=== PATIENT | female | born 1950 | race Caucasian/White ===

== ENCOUNTER 2024-09-05 07:50 | Day surgery (SDC) | payer MEDICARE ==
[2024-09-05] VITALS (10 sets, daily range): BP systolic 117–150; BP diastolic 62–79; PULSE 61–76; RESP 12–15; TEMP 98.2; O2SAT 92–97
[~2024-09-05] VITALS: Ht 172.7 cm; Wt 82.0 kg
[~2024-09-05 07:50] MED LIST: DULO-31 PO; ESTR0.5T36 PO; LEVO100T PO; LOVA20TA2 PO
[2024-09-05] MEDS ORDERED: ATOR-411 PO (08:26)
[2024-09-05] MEDS ORDERED: SEMA1PEN3 SUBCUT (08:31)
[2024-09-05 08:39] LABS: BASOPHILS % (AUTO) 0.4 % (0-1); EOSINOPHILS # (AUTO) 0.1 X10'3 (0-0.9); EOSINOPHILS % (AUTO) 1.9 % (0-6); HEMATOCRIT 41.5 % (35.0-45.0); HEMOGLOBIN 13.8 g/dl (12.0-16.0); LYMPHOCYTES # (AUTO) 1.7 X10'3 (1.1-4.8); LYMPHOCYTES % (AUTO) 29.2 % (21-51); MEAN CORPUSCULAR HEMOGLOBIN 30.6 PG (27.0-31.0); MEAN CORPUSCULAR HGB CONC 33.3 g/dL (33.0-36.5); MEAN CORPUSCULAR VOLUME 92.1 FL (78-98); MEAN PLATELET VOLUME 9.3 FL (7.4-10.4); MONOCYTES # (AUTO) 0.5 X10'3 (0-0.9); MONOCYTES % (AUTO) 8.5 % (2-12); NEUTROPHILS # (AUTO) 3.5 X10'3 (1.8-7.7); PLATELET COUNT 245 X10'3 (140-440); RED BLOOD COUNT 4.51 X10'6 (4.20-5.60); RED CELL DISTRIBUTION WIDTH 13.8 % (11.5-14.5); WHITE BLOOD COUNT 5.8 X10'3 (4.5-11.0)
--- NOTE | 2024-09-05 08:39 | ELECTROCARDIOGRAPH REPORT ---
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 SAMI Mcmillan Measurements Intervals [place] Rate: 74 P: 21 MN: 176 QRS: 35 QRSD: 141 T: 74 QT: 438 QTc: 486 Interpretive Statements Sinus rhythm Left bundle branch block Electronically Signed On 09-09-2024 18:31:[address] SAMI Mcmillan Please click the below link to view image of tracing.
[2024-09-05 08:40] LABS: ALBUMIN 3.5 G/DL (3.4-5.0); ANION GAP 7 (8-16); BLOOD UREA NITROGEN 15 MG/DL (7-18); BUN/CREATININE RATIO 20.8 (10.0-20.0); CALCIUM 8.7 MG/DL (8.5-10.1); CHLORIDE 109 MMOL/L (99-107); CREATININE 0.72 MG/DL (0.40-0.90); GLUCOSE 104 MG/DL (70-104); MAGNESIUM 2.2 MG/DL (1.5-2.4); POTASSIUM 4.1 MMOL/L (3.5-5.1); SODIUM 142 MMOL/L (135-145); TOTAL CARBON DIOXIDE 26.3 MMOL/L (24-32); eCRCL 68 ML/MIN; eGFR 79 ML/MIN
[2024-09-05 08:42] LABS: PROTHROMBIN TIME 9.8 SECONDS (9.0-12.0)
[2024-09-05] MEDS: normal saline 1,000 ML IV SCH (09:14)
[2024-09-05] MEDS: diphenhydrAMINE 25mg capsule PO PRN (09:14)
[2024-09-05] MEDS: sodium bicarbonate 1meq/ml syr 150 ML in dextrose 5%-water 1,000 ML IV ONE (09:14)
[2024-09-05] MEDS ORDERED: LIDOcaine 1% (10mg/ml) 2ml vial ONE (10:15)
[2024-09-05] MEDS ORDERED: verapamil 2.5 mg/ml inj IV ONE (10:15)
[2024-09-05] MEDS ORDERED: midazolam 1 mg/ML 2ml injection ONE ×3 (10:16→11:33)
[2024-09-05] MEDS ORDERED: iohexol 350MG/ML 100ml bottle IV ONE (10:16)
[2024-09-05] MEDS ORDERED: fentaNYL/PF 50MCG/1 ML 2ML syringe ONE (10:16)
[2024-09-05] MEDS ORDERED: iohexol 350 MG/ML 50ML vial IV ONE (10:16)
[2024-09-05] MEDS ORDERED: nitroGLYCERIN 500mcg/5mL D5W 5 ML IV ONE (10:16)
[2024-09-05] MEDS ORDERED: heparin 1,000unit/ml 10ml vial 10 ML ONE (10:16)
[2024-09-05] MEDS ORDERED: HYDROmorphone 1 mg/ml syringe ONE (11:29)
[2024-09-05] MEDS ORDERED: proCHLORperazine 10 MG/2 ml inj IV PRN (12:20)
[2024-09-05] MEDS ORDERED: HYDROcodone/acetaminophen 10/325mg tab PO PRN (12:20)
[2024-09-05] MEDS ORDERED: ondansetron/PF 4mg/2ml inj IV PRN (12:20)
[2024-09-05] MEDS ORDERED: HYDROcodone/acetaminophen 5mg/325mg tablet PO PRN (12:20)
[2024-09-05] MEDS ORDERED: PANT40TA54 PO (12:44)
--- NOTE | 2024-09-05 13:19 | CARDIOLOGY REPORT ---
DATE OF SERVICE: 09/05/2024 DICTATING PHYSICIAN: RANCHO ALCARAZ DO CARDIAC CATHETERIZATION REPORT REFERRING PHYSICIAN: aRncho Alcaraz DO. CLINICAL HISTORY: This 73-year-old woman has a 4-6 week history of exertional dyspnea with chest pressure and easy fatigue. Symptoms have grown more frequent and somewhat more severe during that period of time. She has not had pressure or dyspnea at rest. There is no prior history of ischemic heart disease. Because her symptoms are so typical of angina and because the onset of symptoms and the severity of symptoms has been increasingly severe, she is presumed to have unstable angina. PROCEDURES PERFORMED: * Left heart catheterization. * Left ventriculography. * Selective coronary arteriography. * A 30-minute conscious sedation supervision. DESCRIPTION OF PROCEDURE: The patient was sedated with fentanyl and Versed. She was then prepared and draped in the usual manner. The right radial area was infiltrated with 1% lidocaine using a micropuncture set and a Seldinger technique. A 6-Thai sheath was placed in the femoral artery. Standard cocktail of 200 mcg of nitroglycerin and 2.5 mg of verapamil were directly injected into the radial artery, 5,000 units of heparin were given into a peripheral intravenous line. Left heart catheterization and left ventriculography were performed using a 6-Thai pigtail catheter. Coronary arteriography was performed using a 6-Thai Kimny catheter for the left coronary artery and a 6-Thai #4 right Angela catheter for the right coronary artery. The arterial sheath was removed and a Vasc band was applied. RESULTS: HEMODYNAMIC DATA: The left ventricular end diastolic pressure was 8 mmHg. There was no gradient across the aortic valve. LEFT VENTRICULOGRAM: The left ventriculogram was technically satisfactory. There were several premature ventricular beats, but the first beat appeared to be sinus and the ejection fraction appeared to be about 65%. CORONARY ARTERIOGRAPHY: The coronary arteriograms are technically satisfactory. The patient had a right dominant system. LEFT MAIN CORONARY ARTERY: The left main was a large unobstructed vessel trifurcating into left anterior descending, intermediate, and circumflex coronary arteries. LEFT ANTERIOR DESCENDING CORONARY ARTERY: The LAD was a large vessel proximally, but it was small to medium in size over the remainder of its non-transapical distribution. There was a large single diagonal branch emanating from the mid LAD. There were no obstructive lesions in the left anterior descending coronary artery. INTERMEDIATE ARTERY: The intermediate was a large, bifurcated, unobstructed vessel. CIRCUMFLEX CORONARY ARTERY: The circumflex was a medium to large main stem vessel. There was a small proximal obtuse marginal branch and a small posterolateral branch. There were no obstructive lesions in the circumflex coronary artery. RIGHT CORONARY ARTERY: The right coronary was a large main stem vessel. There was a large posterior descending branch of a medium-sized first posterolateral, a small second posterolateral, and a tiny third posterolateral. There were no obstructive lesions in the right coronary artery. CONCLUSIONS: * No evidence for obstructive coronary artery disease. * Left ventricular function appears to be normal. * This patient's symptoms, although sounding very much like angina pectoris, may be due to gastroesophageal reflux. PLAN: Ongoing medical therapy. RANCHO ALCARAZ DO TID: [id number] RECEIPT: [id number] RAMÓN
== END 2024-09-05 16:11 | disposition home or self-care (01) ==
LOC: SSTAY O 07:50
PROVIDERS: ATTEND Internal Medicine Cardiovascular Disease
DX: I25.111 Atherosclerotic heart disease of native coronary artery with angina pectoris with documented spasm (principal); I44.7 Left bundle-branch block, unspecified; E03.9 Hypothyroidism, unspecified; E78.00 Pure hypercholesterolemia, unspecified; Z98.890 Other specified postprocedural states; Z90.721 Acquired absence of ovaries, unilateral; Z79.899 Other long term (current) drug therapy; Z82.49 Family history of ischemic heart disease and other diseases of the circulatory system
CPT/HCPCS: 36415; 80048; 83735; 85025; 85610; 93005; 93458; 99152; 99153; A6258; A6402; C1894; J1171; J1644; J2003; J2250; J3010; J3490; J7030; J7070; Q0163; Q9967; Z7610

== ENCOUNTER 2024-09-06 07:31 | Emergency (ER) | payer MEDICARE ==
[~2024-09-06] VITALS: Ht 172.7 cm; Wt 84.1 kg
[~2024-09-06 07:31] MED LIST changes: +ATOR-411 PO; -ESTR0.5T36 PO; -LOVA20TA2 PO; +PANT40TA54 PO; +SEMA1PEN3 SUBCUT
[2024-09-06 07:36] VITALS: TEMP 98.4
[2024-09-06 07:59] LABS: BASOPHILS % (AUTO) 0.4 % (0-1); EOSINOPHILS # (AUTO) 0.2 X10'3 (0-0.9); EOSINOPHILS % (AUTO) 2.2 % (0-6); HEMATOCRIT 40.2 % (35.0-45.0); HEMOGLOBIN 13.7 g/dl (12.0-16.0); LYMPHOCYTES # (AUTO) 2.2 X10'3 (1.1-4.8); LYMPHOCYTES % (AUTO) 29.5 % (21-51); MEAN CORPUSCULAR HEMOGLOBIN 30.9 PG (27.0-31.0); MEAN CORPUSCULAR VOLUME 90.9 FL (78-98); MEAN PLATELET VOLUME 8.8 FL (7.4-10.4); MONOCYTES # (AUTO) 0.6 X10'3 (0-0.9); MONOCYTES % (AUTO) 8.5 % (2-12); NEUTROPHILS # (AUTO) 4.3 X10'3 (1.8-7.7); NEUTROPHILS % (AUTO) 59.4 % (42-75); PLATELET COUNT 253 X10'3 (140-440); RED BLOOD COUNT 4.42 X10'6 (4.20-5.60); RED CELL DISTRIBUTION WIDTH 13.6 % (11.5-14.5); WHITE BLOOD COUNT 7.3 X10'3 (4.5-11.0)
[2024-09-06 08:22] LABS: ALANINE AMINOTRANSFERASE 25 U/L (12-78); ALBUMIN 3.1 G/DL (3.4-5.0); ALKALINE PHOSPHATASE 123 IU/L (46-116); ANION GAP 6 (8-16); ASPARTATE AMINO TRANSFERASE 20 U/L (10-37); BILIRUBIN,TOTAL 0.2 MG/DL (0.1-1.0); BLOOD UREA NITROGEN 12 MG/DL (7-18); BUN/CREATININE RATIO 17.9 (10.0-20.0); CALCIUM 8.4 MG/DL (8.5-10.1); CHLORIDE 110 MMOL/L (99-107); CREATININE 0.67 MG/DL (0.40-0.90); GLUCOSE 114 MG/DL (70-104); POTASSIUM 4.3 MMOL/L (3.5-5.1); SODIUM 143 MMOL/L (135-145); TOTAL CARBON DIOXIDE 27.3 MMOL/L (24-32); TOTAL PROTEIN 6.3 G/DL (6.4-8.2); eCRCL 73 ML/MIN; eGFR 86 ML/MIN
[2024-09-06 08:28] LABS: PRO BRAIN NATRIURETIC PEPTIDE 138 PG/ML (0-450)
[2024-09-06] MEDS: acetaminophen 325mg tablet PO ONE (09:41)
[2024-09-06 10:16] VITALS: BP 119/70; PULSE 79; RESP 16; O2SAT 93
== END 2024-09-06 10:23 | disposition home or self-care (01) ==
LOC: ER 07:31
DX: R60.9 Edema, unspecified (principal); R07.9 Chest pain, unspecified; Z88.8 Allergy status to other drugs, medicaments and biological substances
CPT/HCPCS: 36415; 71045; 80053; 83880; 84484; 85025; 93005; 99285